=== PATIENT | male | born 2000 | race Hispanic/Latino ===

== ENCOUNTER 2021-04-26 13:36 | Emergency (ER) | payer SELFPAY ==
[~2021-04-26] VITALS: Ht 180.3 cm; Wt 99.8 kg
== END 2021-04-26 15:19 | disposition home or self-care (01) ==
LOC: FSED 13:56
DX: M25.572 Pain in left ankle and joints of left foot (principal); S93.402A Sprain of unspecified ligament of left ankle, initial encounter; X50.1XXA Overexertion from prolonged static or awkward postures, initial encounter; Y93.02 Activity, running; Y92.008 Other place in unspecified non-institutional (private) residence as the place of occurrence of the external cause; F17.210 Nicotine dependence, cigarettes, uncomplicated
CPT/HCPCS: 99284